=== PATIENT | female | born 1995 | race Two or more races ===

== ENCOUNTER → 2025-06-21 | Emergency (ER) | payer OTHER ==
[~2025-06-21] VITALS: Ht 157.5 cm; Wt 54.4 kg
[~2025-06-21] MED LIST: POLYMYXIN B/TMP10 ML OP
== END | disposition home or self-care (01) ==
LOC: ER 09:31
DX: H10.89 Other conjunctivitis (principal); Z88.8 Allergy status to other drugs, medicaments and biological substances